=== PATIENT | female | born 1945 | race American Indian/Alaskan Native ===

== ENCOUNTER 2017-09-22 07:30 | Observation (INO) | payer MEDICARE, OTHER ==
[2017-09-22] MEDS ORDERED: PLAVIX PO NR (08:24)
[2017-09-22] MEDS ORDERED: ECOTRIN PO NR (08:24)
[2017-09-22] MEDS ORDERED: NACL 0.9% 500 ML 500 ML IV SCH (09:00)
[2017-09-22 09:03] LABS: Basophils % (Auto) 0.9 % (0.0-1.8); Eosinophils # (Auto) 0.2 K/mm3 (0.0-0.4); Eosinophils % (Auto) 3.5 % (0.0-4.3); Hematocrit 36.9 % (30.3-42.9); Hemoglobin 11.8 gm/dl (10.1-14.3); Lymphocytes # (Auto) 1.7 K/mm3 (1.2-5.4); Lymphocytes % (Auto) 33.4 % (13.4-35.0); Mean Corpuscular HGB Conc 32 % (30-34); Mean Corpuscular Volume 77 fl (79-97); Monocytes # (Auto) 0.6 K/mm3 (0.0-0.8); Monocytes % (Auto) 11.1 % (0.0-7.3); Platelet Count 216 K/mm3 (140-440); Red Blood Count 4.82 M/mm3 (3.65-5.03); Red Cell Distribution Width 18.4 % (13.2-15.2)
[2017-09-22 09:05] LABS: Mean Corpuscular Hemoglobin 25 pg (28-32)
[2017-09-22 09:18] LABS: INR 0.86 (0.87-1.13)
[2017-09-22 10:06] LABS: Calcium 9.2 mg/dL (8.4-10.2)
[2017-09-22] MEDS ORDERED: HEPARIN/NS 5000 UNIT/500ML(CATH LAB) 1,000 ML IR ONE (10:27)
[2017-09-22] MEDS ORDERED: VERSED ONE (10:27)
[2017-09-22] MEDS ORDERED: NITROGLYCERIN SYRINGE 3 ML ONE (10:28)
[2017-09-22] MEDS ORDERED: XYLOCAINE 2% INFILTRATI ONE (10:28)
[2017-09-22] MEDS ORDERED: SUBLIMAZE ONE (10:28)
[2017-09-22] MEDS ORDERED: CALAN ONE (10:28)
[2017-09-22] MEDS: HEPARIN 10,000 UNITS/10 ML ONE ×3 (11:28→12:22)
[2017-09-22] MEDS ORDERED: HEPARIN/NS 5000 UNIT/500ML(CATH LAB) 500 ML IR ONE (11:51)
[2017-09-22] MEDS ORDERED: ALUM-MAG HYDROX-SIMETH 200-200-20MG/5ML ONE (12:25)
[2017-09-22] MEDS ORDERED: PLAVIX ONE (12:26)
--- NOTE | 2017-09-22 12:51 | Cardiac Catherization Report ---
CORONARY ANGIOPLASTY REPORT The patient is a 71-year-old woman who underwent a cardiac catheterization at another institution that showed an 80% stenosis of the proximal LAD at the origin of a large first diagonal branch. Due to recurrent intermittent chest pain, the patient was recommended for coronary intervention. PROCEDURES: 1. Angioplasty and stenting of the proximal left anterior descending artery. 2. Sedation time, start 11:26, end 12:15. The patient was prepped and draped in a sterile fashion after informed consent. The right radial cath site was prepped and draped after a negative Warren's test. The right radial artery was entered using the Seldinger technique followed by placement of a 6-Liberian hydrophilic sheath. Routine radial cocktail was administered via the sheath. Prior to the coronary intervention, limited angiography of the right coronary artery and limited left ventricular angiography were performed using #4 right Johnny catheter. Using a #3 EBU guiding catheter, we were able to successfully engage the left coronary artery. Angiograms of the LAD and circumflex were then performed. CORONARY ANGIOPLASTY: A 0.014 inch [employer] Technician 50 wire was introduced into the LAD across the lesional segment. Another [employer]acy [employer] Technician 50 guidewire was introduced into the large diagonal branch, whose origin was adjacent to the lesional segment. In the primary stenting maneuver, a 4.0 x 12 mm Resolute drug-eluting stent was deployed across the LAD stenosis, and inflated to optimal pressures. Following stenting, there was an excellent angiographic result at the LAD lesion. The side branch wire was then retracted, reinserted into the diagonal branch through the stent struts. A 2.5 mm balloon catheter was then inserted into the ostium of the diagonal branch through the stent struts and dilated. Following stenting and post-stent balloon angioplasty as described, the wires were removed, post-intervention angiograms revealed an excellent angiographic result at the primary LAD site as well as the ostium of the diagonal. There was ANNE-MARIE 3 flow through both the LAD and diagonal. Procedure was well tolerated by the patient and there are no complications. CONCLUSION: Successful angioplasty and stenting of the proximal LAD bifurcation stenosis, excellent angiographic result with deployment of a 4.0 x 12 mm drug-eluting stent. JOB# [id number] CA/NTS
[2017-09-22] MEDS ORDERED: ULTRAM PO PRN (13:02)
[2017-09-22] MEDS ORDERED: AMBIEN PO PRN (13:02)
[2017-09-22] MEDS ORDERED: ZOFRAN IV PRN (13:02)
--- NOTE | 2017-09-22 13:10 | Event Note ---
Date: 09/22/17 71-year-old woman who presented for outpatient coronary angioplasty and stenting of the LAD. We performed successful angioplasty and stenting with deployment of a 4.0 mm drug-eluting stent, excellent angiographic result and no complications. Procedure was performed via the right radial approach. The patient is otherwise stable for discharge after 6-8 hours of intravenous hydration, anticipate discharge by 6 AM tomorrow morning. The following medications have been added to her regimen: Isosorbide mononitrate 30 mg daily, metoprolol 50 mg twice a day, atorvastatin 40 mg daily at bedtime.
[2017-09-22] MEDS ORDERED: NON-FORMULARY (Lisinopril/Hydrochlorothiazide [Zestoretic 10-12.5 Mg Tablet] 1 TAB) PO SCH (13:15)
[2017-09-22] MEDS: IMDUR PO SCH (13:45)
[2017-09-22] MEDS ORDERED: NACL 0.9% 1000 ML 1,000 ML IV SCH (14:00)
[2017-09-22] MEDS: HumuLIN R SUB-Q SCH ×2 (18:02→22:10)
[2017-09-22] MEDS: LOPRESSOR PO SCH ×2 (19:28→22:10)
[2017-09-23 07:05] LABS: Basophils % (Auto) 0.5 % (0.0-1.8); Eosinophils # (Auto) 0.1 K/mm3 (0.0-0.4); Eosinophils % (Auto) 1.6 % (0.0-4.3); Hematocrit 30.9 % (30.3-42.9); Hemoglobin 10.1 gm/dl (10.1-14.3); Lymphocytes # (Auto) 1.2 K/mm3 (1.2-5.4); Lymphocytes % (Auto) 17.7 % (13.4-35.0); Mean Corpuscular HGB Conc 33 % (30-34); Mean Corpuscular Volume 77 fl (79-97); Monocytes # (Auto) 0.7 K/mm3 (0.0-0.8); Monocytes % (Auto) 10.6 % (0.0-7.3); Platelet Count 193 K/mm3 (140-440); Red Blood Count 4.04 M/mm3 (3.65-5.03); Red Cell Distribution Width 18.3 % (13.2-15.2)
[2017-09-23 07:08] LABS: Mean Corpuscular Hemoglobin 25 pg (28-32)
[2017-09-23 07:27] LABS: Calcium 8.9 mg/dL (8.4-10.2)
[2017-09-23 07:28] LABS: Creatine Kinase MB 2.6 ng/mL (0.0-4.0)
[2017-09-23] MEDS ORDERED: ACTOS PO SCH (08:00)
--- NOTE | 2017-09-23 08:34 | Short Stay Summary ---
Short Stay Documentation Date of service: 09/23/17 - History H&P: obtained from office - Allergies and Medications Current Medications: Allergies Penicillins Adverse Reaction (Verified 09/22/17 10:03) Hives Home Medications Medication Instructions Recorded Confirmed Last Taken Type Aspirin EC [Aspirin Enteric Coated 81 mg PO DAILY 09/22/17 09/22/17 09/21/17 History TAB] 81mg Clopidogrel Bisulfate [Clopidogrel] 75 mg PO DAILY 09/22/17 09/22/17 09/22/17 09 :00 History 75mg Linagliptin [Tradjenta] 5 mg PO DAILY 09/22/17 09/22/17 09/21/17 History 5mg Lisinopril/Hydrochlorothiazide 1 tab PO DAILY 09/22/17 09/22/17 09/21/17 History [Zestoretic 10-12.5 mg Tablet] 1 Nitroglycerin [Nitrostat] 0.4 mg SL DAILY PRN 09/22/17 09/22/17 09/21/17 History 0.4mg Pioglitazone HCl [Actos] 30 mg PO DAILY 09/22/17 09/22/17 09/21/17 History 30mg Active Medications Aspirin (Ecotrin) 325 mg PO QDAY [facility] Atorvastatin Calcium (Lipitor) 40 mg PO QHS [facility] Last Admin: 09/22/17 22:10 Dose: 40 mg Clopidogrel Bisulfate (Plavix) 75 mg PO QDAY [facility] Hydrochlorothiazide (Hctz) 12.5 mg PO QDAY [facility] Insulin Human Regular (Humulin R) 0 units SUB-Q ACHS [facility]; Protocol Last Admin: 09/22/17 22:10 Dose: Not Given Isosorbide Mononitrate (Imdur) 30 mg PO QDAY [facility] Last Admin: 09/22/17 13:45 Dose: 30 mg Lisinopril (Zestril) 10 mg PO QDAY [facility] Metoprolol Tartrate (Lopressor) 50 mg PO BID [facility] Last Admin: 09/22/17 22:10 Dose: Not Given Ondansetron HCl (Zofran) 4 mg IV Q8H PRN PRN Reason: N/V unrelieved by Reglan Pioglitazone HCl (Actos) 30 mg PO QDDIAB [facility] Tramadol HCl (Ultram) 50 mg PO Q4H PRN PRN Reason: Pain, Mild (1-3) Last Admin: 09/22/17 22:09 Dose: 50 mg Zolpidem Tartrate (Ambien) 5 mg PO QHS PRN PRN Reason: Sleep - Physical exam General appearance: no acute distress Lungs: Clear to auscultation Heart: Regular rate - Brief post op/procedure progress note Condition: stable - Hospital course Hospital course: Outpatient coronary angioplasty and stenting of the LAD with deployment of a 4.0 mm drug-eluting stent. Stable overnight observation. The following medications have been added to her regimen: Isosorbide mononitrate 30 mg daily, metoprolol 50 mg twice a day, atorvastatin 40 mg daily at bedtime. - Disposition Condition at discharge: Good Disposition: [id number] TO HOME OR SELFCARE Short Stay Discharge Plan Activity: advance as tolerated Weight Bearing Status: Full Weight Bearing Diet: low fat, low cholesterol, low salt Special Instructions: no heavy lifting Additional Instructions: The following medications have been added to her regimen: Isosorbide mononitrate 30 mg daily, metoprolol 50 mg twice a day, atorvastatin 40 mg daily at bedtime. Follow up with: NAVEEN HAN MD [Primary Care Provider] - 7 Days LULA ALCANTAR MD [Staff Physician] - 7 Days Forms: CardCat PCI D/C Instructions Prescriptions: AtorvaSTATin [Lipitor] 40 mg PO QHS #30 tablet ISOSORBIDE MONOnitrate [Imdur ER] 30 mg PO QDAY #30 tablet Metoprolol [Lopressor TAB] 50 mg PO BID #60 tablet
[2017-09-23] MEDS: HumuLIN R SUB-Q SCH ×2 (09:11→12:22)
--- NOTE | 2017-09-23 09:26 | XRay Report ---
Single view chest: History: Post PCI. Findings: Normal cardiomediastinal silhouette. Trachea is midline. No consolidation, pneumothorax or pleural effusion. Impression: No acute cardiopulmonary findings.
[2017-09-23] MEDS ORDERED: HCTZ PO SCH (10:00)
[2017-09-23] MEDS ORDERED: ECOTRIN PO SCH (10:00)
[2017-09-23] MEDS ORDERED: NON-FORMULARY (Pioglitazone Hcl [Actos] 30 MG) PO SCH (10:00)
[2017-09-23] MEDS ORDERED: PLAVIX PO SCH (10:00)
[2017-09-23] MEDS ORDERED: ZESTRIL PO SCH (10:00)
[2017-09-23 10:58] VITALS: BP 114/50
[2017-09-23] MEDS: LOPRESSOR PO SCH (11:00)
[2017-09-23] MEDS: IMDUR PO SCH (11:00)
== END 2017-09-23 12:36 | disposition home or self-care (01) ==
LOC: CATHLABREC 07:30 → 4A 13:03
PROVIDERS: ADMIT Internal Medicine Cardiovascular Disease; ATTEND Internal Medicine Cardiovascular Disease
DX: I25.10 Atherosclerotic heart disease of native coronary artery without angina pectoris (principal); I10 Essential (primary) hypertension; R94.31 Abnormal electrocardiogram [ECG] [EKG]; E11.40 Type 2 diabetes mellitus with diabetic neuropathy, unspecified; E78.5 Hyperlipidemia, unspecified; Z86.73 Personal history of transient ischemic attack (TIA), and cerebral infarction without residual deficits
CPT/HCPCS: 36415; 71045; 80048; 82550; 82553; 82962; 84484; 85025; 85347; 85610; 85730; 93005; 93010; A9270; C1725; C1769; C1874; C1887; C1894; C9600; G0378; J1644; J2250; J3010; J7040; 92928; Q9967